=== PATIENT | male | born 1955 | race African-American/Black ===

== ENCOUNTER 2024-02-05 10:45 | Inpatient (IN) | payer MEDICARE, MEDICAID ==
[~2024-02-05] VITALS: Ht 172.7 cm; Wt 55.8 kg
[~2024-02-05 10:45] MED LIST: DEXTROSE 50% WATER 50ML SYRINGE IV ONE
[2024-02-05] MEDS: DEXTROSE 50% WATER 50ML SYRINGE IV ONE (11:21)
[2024-02-05] MEDS: SODIUM CHLORIDE 0.9% 1000ML BAG (SEPSIS BOLUS) IV ONE (11:30)
[2024-02-05] MEDS: PIPERACILLIN/TAZO 3.375G/50ML 50 ML IV ONE (11:51)
[2024-02-05 11:58] LABS: BASOPHILS % 0.7 % (0.0-2.0); EOSINOPHILS % 1.7 % (0.0-5.0); HEMOGLOBIN. 11.2 g/dL (14.0-18.0); LYMPHOCYTES % 7.4 % (20.0-50.0); MEAN CORPUSCULAR HEMOGLOBIN 20.3 pg (28.0-32.0); MEAN CORPUSCULAR HGB CONC 30.2 g/dL (31.0-37.0); MEAN CORPUSCULAR VOLUME 67.1 fL (80.0-94.0); MEAN PLATELET VOLUME 9.2 fl (7.4-10.4); NEUTROPHILS % 84.2 % (40.0-76.0); PLATELET 199 x1000/uL (130-400); RED BLOOD CELL COUNT 5.51 mill/uL (4.7-6.1); RED CELL DISTRIBUTION WIDTH 23.9 % (11.6-14.6); WHITE BLOOD COUNT 9.6 x1000/uL (4.5-11.0)
[2024-02-05 12:02] LABS: ADD RBC MORPHOLOGY YES; DIFFERENTIAL COMMENT 1
[2024-02-05 12:05] LABS: CHLORIDE 105 mEq/L (98-107); POTASSIUM 3.6 mEq/L (3.5-5.1); SODIUM 141 mEq/L (136-145)
[2024-02-05 12:06] LABS: CALCIUM 9.5 mg/dL (8.7-10.4); CARBON DIOXIDE 25 mEq/L (21-32); INR 1.4; PROTHROMBIN TIME 15.1 sec (9.6-11.0)
[2024-02-05] MEDS: VANCOMYCIN 1G PREMIX 200 ML IV ONE (12:10)
[2024-02-05 12:11] LABS: CREATININE 1.4 mg/dL (0.6-1.3); GLUCOSE 114 mg/dL (70-105); TROPONIN I HIGH SENSITIVITY 25 ng/L (3.0-53); UREA NITROGEN BLOOD 14 mg/dL (9-23)
[2024-02-05 12:13] LABS: ALANINE AMINOTRANSFERASE 13 IU/L (10-49); ALBUMIN 3.6 g/dL (3.2-4.8); ASPARTATE AMINOTRANSFERASE 41 IU/L (<34); BILIRUBIN DIRECT 1.3 mg/dL (<=3.0); BILIRUBIN TOTAL 2.3 mg/dL (0.1-1.0); PROTEIN TOTAL 6.8 g/dL (6.0-8.3)
[2024-02-05 12:48] LABS: MICROCYTOSIS 2+; PLATELET ESTIMATE NORMAL; TARGET CELLS 1+
[2024-02-05 12:52] LABS: LACTIC ACID 4.4 mmol/L (0.4-2.0)
[2024-02-05] MEDS: KETOROLAC 30MG/ML VIAL IV ONE (13:02)
[2024-02-05] MEDS ORDERED: CLONIDINE 0.1MG TABLET PO PRN (17:15)
[2024-02-05] MEDS ORDERED: IPRATROPIUM/ALBUTEROL 0.5-3(2.5)MG/3ML NEB HHN PRN (17:15)
[2024-02-05 18:20] LABS: BG BASE EXCESS -3.6 mmol/L (-2.0-2.0); BG DEOXYHEMOGLOBIN 4.3 % (0.0-5.0); BG FRACTION INSPIRED OXYGEN 21; BG HCO3 ACT 19.6 mmol/L (22.0-26.0); BG METHEMOGLOBIN 0.3 % (0.0-1.5); BG OXYGEN SATURATION 95.6 % (92.0-98.5); BG OXYHEMOGLOBIN 94.4 % (94.0-97.0); BG PCO2 30.1 mmHg (35.0-45.0); BG PH 7.432 (7.350-7.450); BG PO2 78.8 mmHg (75.0-100.0); BG SAMPLE SITE RIGHT BRACHIAL; BG TOTAL HEMOGLOBIN 12.4 g/dL (12.0-18.0); BG VENT MODE ROOM AIR
[2024-02-05] MEDS: VANCOMYCIN 750MG/250ML IV SCH (18:30)
[2024-02-05 20:22] LABS: IRON 27 ug/dL (65-175)
[2024-02-05 20:24] LABS: LACTATE DEHYDROGENASE 274 IU/L (120-246)
[2024-02-05 20:25] LABS: TOTAL IRON BINDING CAPACITY 231 ug/dl (250-425)
[2024-02-05] MEDS: BLOOD SUGAR DIAGNOSTIC STRIP TEST SCH (21:09)
[2024-02-05] MEDS: HYDROCODONE/ACETAMINOPHEN 5/325MG TABLET PO NR (21:33)
[2024-02-05] MEDS: FAMOTIDINE 20MG TABLET PO SCH (21:33)
[2024-02-05] MEDS: DEXT 5%/0.45% NACL KCL 10MEQ/L 1,000 ML IV ONE (22:58)
[2024-02-06] MEDS: PIPERACILLIN/TAZO 3.375G/50ML 50 ML IV SCH ×2 (03:13→08:00)
[2024-02-06 09:30] VITALS: BP 124/88; PULSE 88; RESP 18; TEMP 98.2
[2024-02-06 09:39] VITALS: BP 110/83; PULSE 74; RESP 18; TEMP 97.9
[2024-02-06 11:12] LABS: EOSINOPHILS % 4.5 % (0.0-5.0); HEMOGLOBIN. 11.4 g/dL (14.0-18.0); LYMPHOCYTES % 15.2 % (20.0-50.0); MEAN CORPUSCULAR HEMOGLOBIN 20.2 pg (28.0-32.0); MEAN CORPUSCULAR HGB CONC 30.1 g/dL (31.0-37.0); MEAN CORPUSCULAR VOLUME 67.1 fL (80.0-94.0); MEAN PLATELET VOLUME 8.6 fl (7.4-10.4); MONOCYTES % 11.5 % (2.0-8.0); NEUTROPHILS % 67.8 % (40.0-76.0); PLATELET 196 x1000/uL (130-400); RED BLOOD CELL COUNT 5.67 mill/uL (4.7-6.1); RED CELL DISTRIBUTION WIDTH 24.5 % (11.6-14.6); WHITE BLOOD COUNT 7.5 x1000/uL (4.5-11.0)
[2024-02-06] MEDS: KETOROLAC 15MG/ML VIAL IV PRN (11:14)
[2024-02-06 11:20] LABS: ADD RBC MORPHOLOGY NO; DIFFERENTIAL COMMENT 1
[2024-02-06 11:36] LABS: CHLORIDE 108 mEq/L (98-107); POTASSIUM 3.5 mEq/L (3.5-5.1); SODIUM 138 mEq/L (136-145)
[2024-02-06 11:37] LABS: CALCIUM 9.1 mg/dL (8.7-10.4); CARBON DIOXIDE 22 mEq/L (21-32)
[2024-02-06 11:42] LABS: CREATININE 1.2 mg/dL (0.6-1.3); GLUCOSE 69 mg/dL (70-105); TRIGLYCERIDE 77 mg/dL (0-150); UREA NITROGEN BLOOD 10 mg/dL (9-23)
[2024-02-06 11:43] LABS: LACTIC ACID 3.4 mmol/L (0.4-2.0); LDL CHOLESTEROL 59 mg/dL (5-100)
[2024-02-06 11:44] LABS: CHOLESTEROL 106 mg/dL (<200); HDL CHOLESTEROL 33 mg/dL (>55)
[2024-02-06 11:46] LABS: T4 FREE 1.18 ng/dL (0.89-1.76); THYROID STIMULATING HORMONE 3.48 uIU/mL (0.55-4.78)
[2024-02-06 12:00] VITALS: BP 118/66; PULSE 88; RESP 18; TEMP 98.2
[2024-02-06] MEDS: DEXTROSE 50% WATER 50ML SYRINGE IV PRN (13:28)
[2024-02-06] MEDS: FUROSEMIDE 40MG/4ML VIAL IVP SCH (15:01)
[2024-02-06] MEDS: AZATHIOPRINE 50MG TABLET PO SCH (15:06)
[2024-02-06 16:00] VITALS: BP 116/68; PULSE 88; RESP 18; TEMP 98.2
[2024-02-06] MEDS: ASPIRIN 81MG TABLET PO SCH (16:29)
[2024-02-06] MEDS: PREDNISONE 5MG TABLET PO SCH (16:29)
[2024-02-06 18:16] LABS: CLARITY URINE TURBID (CLEAR); COLOR URINE DARK YELLOW (YELLOW); GLUCOSE URINE NEGATIVE (NEGATIVE); KETONES URINE TRACE (NEGATIVE); LEUKOCYTE ESTERASE URINE 3+ (NEGATIVE); NITRITE URINE NEGATIVE (NEGATIVE); OCCULT BLOOD URINE 3+ (NEGATIVE); PH URINE 5.5 (4.5-8.0); PROTEIN URINE 2+ (NEGATIVE); SPECIFIC GRAVITY URINE 1.018 (1.005-1.030)
[2024-02-06] MEDS: VANCOMYCIN 1.25GM PMX (XELLIA) 250 ML IV SCH (18:23)
[2024-02-06 18:39] LABS: CREATININE URINE RANDOM 127.2 mg/dL
[2024-02-06 19:14] LABS: BACTERIA URINE 4+; RBC URINE TNTC /hpf (0-2); SQUAMOUS EPITHELIAL CELL URINE NONE SEEN /lpf (RARE/1+); WBC URINE TNTC /hpf (0-2); YEAST URINE 4+
[2024-02-06 20:00] VITALS: BP 125/94; PULSE 93; RESP 16; TEMP 97.3
[2024-02-06] MEDS ORDERED: INFLUENZA VACCINE 05/PF 0.5 ML SYRINGE IM ONE (21:30)
[2024-02-06] MEDS ORDERED: PNEUMOCOCCAL 23-VAL P-SAC VAC 0.5 ML IM ONE (21:30)
[2024-02-07] VITALS: BP 120/91; PULSE 94; RESP 19; TEMP 97.1
[2024-02-07 04:53] VITALS: BP 127/86; PULSE 94; RESP 19; TEMP 97.3
[2024-02-07 08:04] LABS: CALCIUM 9.2 mg/dL (8.7-10.4); CHLORIDE 106 mEq/L (98-107); POTASSIUM 3.7 mEq/L (3.5-5.1); SODIUM 140 mEq/L (136-145)
[2024-02-07 08:06] LABS: CARBON DIOXIDE 23 mEq/L (21-32)
[2024-02-07 08:11] LABS: CREATININE 1.3 mg/dL (0.6-1.3); GLUCOSE 98 mg/dL (70-105); UREA NITROGEN BLOOD 14 mg/dL (9-23)
[2024-02-07] MEDS: LIDOCAINE HCL 1% 10 MG/ML 10ML VIAL ONE (08:30)
[2024-02-07] MEDS: DOCUSATE SODIUM 100MG CAPSULE PO PRN (10:12)
[2024-02-07] MEDS: CLOPIDOGREL 75MG TABLET PO SCH (10:12)
[2024-02-07] MEDS ORDERED: INSULIN LISPRO 100 UNITS/ML SUBCUT PRN (14:30)
[2024-02-07] MEDS ORDERED: DEXTROSE 50% WATER 50ML SYRINGE IV PRN (14:30)
[2024-02-07] MEDS: ENOXAPARIN 40MG/0.4ML SYR SUBCUT SCH (16:01)
[2024-02-07] MEDS: BLOOD SUGAR DIAGNOSTIC STRIP TEST SCH (18:22)
[2024-02-07] MEDS: FUROSEMIDE 40MG/4ML VIAL IVP SCH (18:41)
[2024-02-07 20:00] VITALS: BP 125/87; PULSE 96; RESP 16; TEMP 97.5
[2024-02-07] MEDS: INSULIN LISPRO 100 UNITS/ML SUBCUT PRN (20:55)
[2024-02-07] MEDS ORDERED: FUROSEMIDE 40MG/4ML VIAL IVP SCH (21:00)
[2024-02-08] VITALS: BP 121/96; PULSE 92; RESP 20; TEMP 97.3
[2024-02-08 04:00] VITALS: BP 122/96; PULSE 91; RESP 20; TEMP 97.1
[2024-02-08 07:45] LABS: HEMATOCRIT 39.2 % (42.0-52.0)
[2024-02-08 07:50] LABS: CALCIUM 9.3 mg/dL (8.7-10.4); CARBON DIOXIDE 24 mEq/L (21-32); CHLORIDE 105 mEq/L (98-107); POTASSIUM 3.4 mEq/L (3.5-5.1); SODIUM 138 mEq/L (136-145)
[2024-02-08 07:56] LABS: CREATINE KINASE 91 IU/L (46-171); CREATININE 1.3 mg/dL (0.6-1.3); GLUCOSE 83 mg/dL (70-105); LACTIC ACID 3.2 mmol/L (0.4-2.0); UREA NITROGEN BLOOD 12 mg/dL (9-23)
[2024-02-08 07:57] LABS: TROPONIN I HIGH SENSITIVITY 25 ng/L (3.0-53)
[2024-02-08 07:58] LABS: PHOSPHORUS 3.3 mg/dL (2.5-4.9)
[2024-02-08 08:00] VITALS: BP 123/85; PULSE 92; RESP 20; TEMP 97.8
[2024-02-08] MEDS: POTASSIUM CHLORIDE 20MEQ TABLET SR PO SCH (10:04)
[2024-02-08] MEDS: MAGNESIUM OXIDE 400MG TABLET PO SCH (10:05)
[2024-02-08] MEDS: FLUCONAZOLE 100MG TABLET PO SCH (14:56)
[2024-02-08 15:57] LABS: ALBUMIN 3.6 g/dL (3.2-4.8)
[2024-02-08 16:00] VITALS: BP 121/92; PULSE 92; RESP 18; TEMP 97.9
[2024-02-08 16:11] LABS: PREALBUMIN < 5.0 mg/dl (10.0-40.0)
[2024-02-08 20:00] VITALS: BP 124/61; PULSE 58; RESP 20; TEMP 97.3
[2024-02-08] MEDS ORDERED: AMIT50TA4 PO (21:40)
[2024-02-08] MEDS ORDERED: ISOS60TA76 PO (21:40)
[2024-02-08] MEDS ORDERED: POTA-204 PO (21:40)
[2024-02-08] MEDS ORDERED: CLOP75TA33 PO (21:40)
[2024-02-08] MEDS ORDERED: OXYB5TAB21 PO (21:40)
[2024-02-08] MEDS ORDERED: AZAT50TA24 PO (21:40)
[2024-02-08] MEDS ORDERED: FURO40TA5 PO (21:40)
[2024-02-08] MEDS ORDERED: FERR325T30 PO (21:40)
[2024-02-08] MEDS ORDERED: METO25TA6 PO (21:40)
[2024-02-08] MEDS ORDERED: SIMV-43 PO (21:40)
[2024-02-08] MEDS ORDERED: PRED5TAB PO (21:40)
[2024-02-08] MEDS ORDERED: METF-907 PO (21:40)
[2024-02-08] MEDS ORDERED: GABA-529 PO (21:40)
[2024-02-08] MEDS ORDERED: BISA-145 PO (21:40)
[2024-02-08] MEDS ORDERED: ASPI-1406 PO (21:40)
[2024-02-09] VITALS (7 sets, daily range): BP systolic 100–155; BP diastolic 72–96; PULSE 58–95; RESP 18–20; TEMP 97–98.9
[2024-02-09 07:16] LABS: CHLORIDE 104 mEq/L (98-107); POTASSIUM 3.7 mEq/L (3.5-5.1); SODIUM 139 mEq/L (136-145)
[2024-02-09 07:17] LABS: BASOPHILS % 0.8 % (0.0-2.0); CALCIUM 9.4 mg/dL (8.7-10.4); CARBON DIOXIDE 23 mEq/L (21-32); EOSINOPHILS % 2.3 % (0.0-5.0); HEMOGLOBIN. 12.7 g/dL (14.0-18.0); LYMPHOCYTES % 13.9 % (20.0-50.0); MEAN CORPUSCULAR HEMOGLOBIN 20.7 pg (28.0-32.0); MEAN CORPUSCULAR HGB CONC 30.2 g/dL (31.0-37.0); MEAN CORPUSCULAR VOLUME 68.5 fL (80.0-94.0); MONOCYTES % 8.4 % (2.0-8.0); NEUTROPHILS % 74.6 % (40.0-76.0); PLATELET 232 x1000/uL (130-400); RED BLOOD CELL COUNT 6.13 mill/uL (4.7-6.1); RED CELL DISTRIBUTION WIDTH 24.1 % (11.6-14.6); WHITE BLOOD COUNT 10.8 x1000/uL (4.5-11.0)
[2024-02-09 07:22] LABS: CREATININE 1.4 mg/dL (0.6-1.3); DIFFERENTIAL COMMENT 1; GLUCOSE 98 mg/dL (70-105); UREA NITROGEN BLOOD 13 mg/dL (9-23)
[2024-02-09 07:24] LABS: PHOSPHORUS 2.9 mg/dL (2.5-4.9)
[2024-02-09 07:57] LABS: LACTIC ACID 5.8 mmol/L (0.4-2.0)
[2024-02-09] MEDS ORDERED: IPRATROPIUM/ALBUTEROL 0.5-3(2.5)MG/3ML NEB HHN PRN (09:45)
[2024-02-09] MEDS: MAGNESIUM 1 G PREMIX 100 ML IV NR (10:07)
[2024-02-09] MEDS: SODIUM CHLORIDE 0.9% 500 ML IV ONE (10:12)
[2024-02-09] MEDS: MAGNESIUM 2 G PREMIX 50 ML IV NR (13:54)
[2024-02-09 19:08] LABS: BG BASE EXCESS -1.7 mmol/L (-2.0-2.0); BG CARBOXYHEMOGLOBIN 0.9 % (0.5-1.5); BG DEOXYHEMOGLOBIN 1.5 % (0.0-5.0); BG FRACTION INSPIRED OXYGEN 32; BG HCO3 ACT 22.3 mmol/L (22.0-26.0); BG METHEMOGLOBIN 0.3 % (0.0-1.5); BG OXYGEN SATURATION 98.5 % (92.0-98.5); BG OXYHEMOGLOBIN 97.3 % (94.0-97.0); BG PCO2 35.4 mmHg (35.0-45.0); BG PH 7.417 (7.350-7.450); BG PO2 109.4 mmHg (75.0-100.0); BG SAMPLE SITE RIGHT BRACHIAL; BG TOTAL HEMOGLOBIN 13.2 g/dL (12.0-18.0); BG VENT MODE NASAL CANNULA
[2024-02-09] MEDS: IPRATROPIUM/ALBUTEROL 0.5-3(2.5)MG/3ML NEB HHN SCH (20:25)
[2024-02-09 21:26] LABS: LACTIC ACID 6.2 mmol/L (0.4-2.0)
[2024-02-09] MEDS: IOHEXOL-300 100 ML BOTTLE ONE (23:54)
[2024-02-10] VITALS (9 sets, daily range): BP systolic 113–157; BP diastolic 71–100; PULSE 69–91; RESP 17–20; TEMP 96.9–97.9
[2024-02-10 16:32] LABS: CARBON DIOXIDE 15 mEq/L (21-32); CHLORIDE 101 mEq/L (98-107); POTASSIUM 4.4 mEq/L (3.5-5.1); SODIUM 137 mEq/L (136-145)
[2024-02-10 16:33] LABS: CALCIUM 9.9 mg/dL (8.7-10.4)
[2024-02-10 16:38] LABS: CREATININE 1.5 mg/dL (0.6-1.3); GLUCOSE 75 mg/dL (70-105); UREA NITROGEN BLOOD 14 mg/dL (9-23)
[2024-02-10 16:39] LABS: ALANINE AMINOTRANSFERASE 19 IU/L (10-49); ASPARTATE AMINOTRANSFERASE 44 IU/L (<34)
[2024-02-10 16:40] LABS: BILIRUBIN TOTAL 2.1 mg/dL (0.1-1.0); PROTEIN TOTAL 7.9 g/dL (6.0-8.3)
[2024-02-10 17:08] LABS: LACTIC ACID 12.7 mmol/L (0.4-2.0)
[2024-02-10] MEDS: DEXT 5%/0.9% NACL 500 ML IV ONE (20:30)
[2024-02-10 20:50] LABS: BASOPHILS % 0.4 % (0.0-2.0); EOSINOPHILS % 0.2 % (0.0-5.0); HEMATOCRIT. 42.9 % (42.0-52.0); HEMOGLOBIN. 12.3 g/dL (14.0-18.0); MEAN CORPUSCULAR HEMOGLOBIN 20.3 pg (28.0-32.0); MEAN CORPUSCULAR HGB CONC 28.6 g/dL (31.0-37.0); MEAN CORPUSCULAR VOLUME 70.9 fL (80.0-94.0); MEAN PLATELET VOLUME 9.5 fl (7.4-10.4); MONOCYTES % 4.5 % (2.0-8.0); NEUTROPHILS % 86.9 % (40.0-76.0); PLATELET 245 x1000/uL (130-400); RED BLOOD CELL COUNT 6.05 mill/uL (4.7-6.1); RED CELL DISTRIBUTION WIDTH 24.8 % (11.6-14.6); WHITE BLOOD COUNT 10.1 x1000/uL (4.5-11.0)
[2024-02-10 20:52] LABS: DIFFERENTIAL COMMENT 1
[2024-02-10 20:53] LABS: ADD RBC MORPHOLOGY YES
[2024-02-10] MEDS: SODIUM BICARBONATE 8.4% 50MEQ/50ML SYR IV NR (20:55)
[2024-02-10 23:42] LABS: MICROCYTOSIS 2+; PLATELET ESTIMATE NORMAL
[2024-02-10 23:43] LABS: ANISOCYTOSIS 2+; HYPOCHROMASIA 1+; OVALOCYTES 1+; TARGET CELLS 1+
[2024-02-11] VITALS (10 sets, daily range): BP systolic 119–144; BP diastolic 52–97; PULSE 72–93; RESP 16–20; TEMP 97.2–98.1
[2024-02-11 01:33] LABS: LACTIC ACID 12.7 mmol/L (0.4-2.0)
[2024-02-11] MEDS: DEXT 10% WATER 1,000 ML IV SCH (02:31)
[2024-02-11 08:02] LABS: CARBON DIOXIDE 23 mEq/L (21-32); CHLORIDE 100 mEq/L (98-107); POTASSIUM 3.9 mEq/L (3.5-5.1); SODIUM 136 mEq/L (136-145)
[2024-02-11 08:03] LABS: CALCIUM 10.1 mg/dL (8.7-10.4)
[2024-02-11 08:08] LABS: CREATININE 1.6 mg/dL (0.6-1.3); GLUCOSE 219 mg/dL (70-105); UREA NITROGEN BLOOD 17 mg/dL (9-23)
[2024-02-11 08:10] LABS: PHOSPHORUS 3.9 mg/dL (2.5-4.9)
[2024-02-11 08:23] LABS: BASOPHILS % 0.6 % (0.0-2.0); EOSINOPHILS % 0.9 % (0.0-5.0); HEMOGLOBIN. 10.9 g/dL (14.0-18.0); LYMPHOCYTES % 9.7 % (20.0-50.0); MEAN CORPUSCULAR HEMOGLOBIN 20.5 pg (28.0-32.0); MEAN CORPUSCULAR HGB CONC 30.4 g/dL (31.0-37.0); MEAN CORPUSCULAR VOLUME 67.4 fL (80.0-94.0); MEAN PLATELET VOLUME 9.4 fl (7.4-10.4); MONOCYTES % 5.6 % (2.0-8.0); NEUTROPHILS % 83.2 % (40.0-76.0); PLATELET 213 x1000/uL (130-400); RED BLOOD CELL COUNT 5.34 mill/uL (4.7-6.1); RED CELL DISTRIBUTION WIDTH 23.8 % (11.6-14.6)
[2024-02-11 08:36] LABS: DIFFERENTIAL COMMENT 1
[2024-02-11] MEDS: GUAIFENESIN 200MG/10ML SUGAR FREE UDC PO PRN (08:54)
[2024-02-11] MEDS: BLOOD SUGAR DIAGNOSTIC STRIP TEST SCH (16:47)
[2024-02-12] VITALS (10 sets, daily range): BP systolic 118–150; BP diastolic 76–90; PULSE 68–93; RESP 18–20; TEMP 79.4–99; O2SAT 97–98
[2024-02-12 06:56] LABS: CALCIUM 9.9 mg/dL (8.7-10.4)
[2024-02-12 07:38] LABS: HEMATOCRIT 37.2 % (42.0-52.0); HEMOGLOBIN 11.2 g/dL (14.0-18.0); MEAN CORPUSCULAR HEMOGLOBIN 20.2 pg (28.0-32.0); MEAN CORPUSCULAR HGB CONC 30.1 g/dL (31.0-37.0); MEAN CORPUSCULAR VOLUME 67.2 fL (80.0-94.0); PLATELET 227 x1000/uL (130-400); RED BLOOD CELL COUNT 5.54 mill/uL (4.7-6.1); RED CELL DISTRIBUTION WIDTH 23.9 % (11.6-14.6); WHITE BLOOD COUNT 11.6 x1000/uL (4.5-11.0)
[2024-02-12] MEDS: ACETAMINOPHEN 325MG TABLET PO PRN (10:14)
[2024-02-12 10:33] LABS: LACTIC ACID 9.3 mmol/L (0.4-2.0)
[2024-02-12 17:54] LABS: LACTATE DEHYDROGENASE 939 IU/L (120-246)
[2024-02-12] MEDS: FUROSEMIDE 40MG/4ML VIAL IVP SCH (17:59)
[2024-02-13] VITALS (8 sets, daily range): BP systolic 124–136; BP diastolic 74–91; PULSE 75–87; RESP 16–22; TEMP 97–98.4; O2SAT 97
[2024-02-13 05:54] LABS: CHLORIDE 97 mEq/L (98-107); POTASSIUM 6.1 mEq/L (3.5-5.1); SODIUM 134 mEq/L (136-145)
[2024-02-13 05:55] LABS: CALCIUM 10.6 mg/dL (8.7-10.4); CARBON DIOXIDE 20 mEq/L (21-32)
[2024-02-13 06:00] LABS: CREATININE 2.5 mg/dL (0.6-1.3); GLUCOSE 57 mg/dL (70-105); GLUCOSE FASTING 57 mg/dL (70-105); UREA NITROGEN BLOOD 25 mg/dL (9-23)
[2024-02-13 06:02] LABS: ALANINE AMINOTRANSFERASE 208 IU/L (10-49); ALBUMIN 3.9 g/dL (3.2-4.8); ASPARTATE AMINOTRANSFERASE 921 IU/L (<34); BILIRUBIN TOTAL 2.6 mg/dL (0.1-1.0); PROTEIN TOTAL 7.4 g/dL (6.0-8.3)
[2024-02-13 06:31] LABS: HEMATOCRIT 39.6 % (42.0-52.0); HEMOGLOBIN 11.8 g/dL (14.0-18.0); MEAN CORPUSCULAR HEMOGLOBIN 20.5 pg (28.0-32.0); MEAN CORPUSCULAR HGB CONC 29.9 g/dL (31.0-37.0); MEAN CORPUSCULAR VOLUME 68.6 fL (80.0-94.0); PLATELET 221 x1000/uL (130-400); RED BLOOD CELL COUNT 5.77 mill/uL (4.7-6.1)
[2024-02-13] MEDS: SODIUM POLYSTYRENE SULFONATE 15 G/60 ML BOT PO ONE (09:30)
[2024-02-13] MEDS: SODIUM ZIRCONIUM CYCLOSILICATE 10GM/PACKET PO NR (09:50)
[2024-02-13] MEDS: FUROSEMIDE 40MG/4ML VIAL IVP SCH (09:51)
[2024-02-13] MEDS: ALBUTEROL (0.083%) 2.5MG/3ML NEB HHN NR (12:38)
[2024-02-13] MEDS ORDERED: MILRINONE 20MG-DEXT 5% PREMIX 100 ML IV SCH (13:15)
[2024-02-13] MEDS: ENOXAPARIN 30MG/0.3ML SYR SUBCUT SCH (15:59)
[2024-02-13 17:26] LABS: TROPONIN I HIGH SENSITIVITY 44 ng/L (3.0-53)
[2024-02-13 20:25] LABS: TROPONIN I HIGH SENSITIVITY 46 ng/L (3.0-53)
[2024-02-13 21:32] LABS: BG BASE EXCESS -7.1 mmol/L (-2.0-2.0); BG CARBOXYHEMOGLOBIN 0.8 % (0.5-1.5); BG DEOXYHEMOGLOBIN 0.5 % (0.0-5.0); BG FRACTION INSPIRED OXYGEN 36; BG OXYGEN SATURATION 99.5 % (92.0-98.5); BG OXYHEMOGLOBIN 98.7 % (94.0-97.0); BG PCO2 34.9 mmHg (35.0-45.0); BG PO2 181.5 mmHg (75.0-100.0); BG SAMPLE SITE RIGHT BRACHIAL; BG TOTAL HEMOGLOBIN 12.4 g/dL (12.0-18.0); BG VENT MODE NASAL CANNULA
[2024-02-14] VITALS (16 sets, daily range): BP systolic 99–137; BP diastolic 67–86; PULSE 63–88; RESP 16–22; TEMP 97.2–97.7
[2024-02-14 00:20] LABS: TROPONIN I HIGH SENSITIVITY 49 ng/L (3.0-53)
[2024-02-14 01:41] LABS: CLARITY URINE TURBID (CLEAR); COLOR URINE DARK YELLOW (YELLOW); GLUCOSE URINE NEGATIVE (NEGATIVE); KETONES URINE TRACE (NEGATIVE); LEUKOCYTE ESTERASE URINE 3+ (NEGATIVE); NITRITE URINE NEGATIVE (NEGATIVE); OCCULT BLOOD URINE 2+ (NEGATIVE); PROTEIN URINE 2+ (NEGATIVE); SPECIFIC GRAVITY URINE 1.034 (1.005-1.030)
[2024-02-14 01:48] LABS: POTASSIUM URINE RANDOM 68.5 mEq/L
[2024-02-14 02:22] LABS: BACTERIA URINE 1+; SQUAMOUS EPITHELIAL CELL URINE 1+ /lpf (RARE/1+); WBC URINE TNTC /hpf (0-2); YEAST URINE 2+
[2024-02-14 04:42] LABS: CALCIUM 10.4 mg/dL (8.7-10.4)
[2024-02-14 04:44] LABS: BASOPHILS % 0.5 % (0.0-2.0); EOSINOPHILS % 0.1 % (0.0-5.0); HEMATOCRIT. 38.9 % (42.0-52.0); LYMPHOCYTES % 7.3 % (20.0-50.0); MEAN CORPUSCULAR HEMOGLOBIN 20.6 pg (28.0-32.0); MEAN CORPUSCULAR HGB CONC 30.8 g/dL (31.0-37.0); MEAN PLATELET VOLUME 9.1 fl (7.4-10.4); MONOCYTES % 7.4 % (2.0-8.0); NEUTROPHILS % 84.7 % (40.0-76.0); PLATELET 215 x1000/uL (130-400); RED BLOOD CELL COUNT 5.81 mill/uL (4.7-6.1); RED CELL DISTRIBUTION WIDTH 23.8 % (11.6-14.6)
[2024-02-14 04:46] LABS: CREATININE 2.9 mg/dL (0.6-1.3)
[2024-02-14 05:11] LABS: POTASSIUM 6.2 mEq/L (3.5-5.1)
[2024-02-14] MEDS: SODIUM POLYSTYRENE SULFONATE 15 G/60 ML BOT PO NR (05:44)
[2024-02-14 06:30] LABS: DIFFERENTIAL COMMENT 1
[2024-02-14] MEDS: SODIUM BICARBONATE 8.4% 50MEQ/50ML SYR IV NR (06:37)
[2024-02-14] MEDS: CALCIUM CHLORIDE 1GM/10ML SYR IV NR (06:46)
[2024-02-14] MEDS: ALBUTEROL (0.083%) 2.5MG/3ML NEB HHN NR (09:29)
[2024-02-14] MEDS: ENOXAPARIN 80MG/0.8ML SYR SUBCUT SCH (12:39)
[2024-02-14 13:01] LABS: POTASSIUM 5.6 mEq/L (3.5-5.1)
[2024-02-14 13:04] LABS: POTASSIUM 5.6 mEq/L (3.5-5.1)
[2024-02-14 13:06] LABS: INR 2.6
[2024-02-14 13:07] LABS: C-PEPTIDE 3.2 ng/mL (1.1-4.4); INSULIN 0.9 uIU/mL (2.6-24.9)
[2024-02-14 13:12] LABS: AMMONIA < 17 uMol/L (<32)
[2024-02-14 13:40] LABS: HEPATITIS B SURFACE ANTIGEN NEGATIVE (Negative)
[2024-02-14 14:00] LABS: HEPATITIS A AB IGM NEGATIVE (Negative)
[2024-02-14 14:01] LABS: HEPATITIS B CORE AB IGM NEGATIVE (Negative)
[2024-02-14 14:02] LABS: HEPATITIS C AB REACTIVE (Pos) (Negative)
[2024-02-14] MEDS ORDERED: LIDOCAINE HCL 1% 10 MG/ML 10ML VIAL ONE (14:06)
[2024-02-14 15:54] LABS: ALANINE AMINOTRANSFERASE 280 IU/L (10-49); ALBUMIN 3.5 g/dL (3.2-4.8); ASPARTATE AMINOTRANSFERASE 978 IU/L (<34)
[2024-02-14 15:55] LABS: PROTEIN TOTAL 6.8 g/dL (6.0-8.3)
[2024-02-14] MEDS: MEROPENEM 1G/100ML 100 ML IV SCH (17:53)
[2024-02-14] MEDS: PHYTONADIONE 10MG/ML INJ SUBCUT SCH (18:02)
[2024-02-14] MEDS ORDERED: MELA10CA PO (20:37)
[2024-02-14] MEDS ORDERED: CHOL400D7 PO (20:37)
[2024-02-14] MEDS ORDERED: AZAT50TA24 PO (20:37)
[2024-02-14] MEDS ORDERED: MEROPENEM 500MG/50ML 50 ML IV SCH (22:00)
[2024-02-14] MEDS: IPRATROPIUM/ALBUTEROL 0.5-3(2.5)MG/3ML NEB HHN SCH (22:00)
[2024-02-14] MEDS: ACETYLCYSTEINE 200MG/ML 20% VIAL 4ML INH SCH (22:00)
[2024-02-15] VITALS (15 sets, daily range): BP systolic 116–138; BP diastolic 63–85; PULSE 82–89; RESP 16–22; TEMP 97.3–98.1; O2SAT 99
[2024-02-15 07:05] LABS: AMMONIA < 17 uMol/L (<32)
[2024-02-15 07:17] LABS: CHLORIDE 99 mEq/L (98-107); INR 2.6; POTASSIUM 4.4 mEq/L (3.5-5.1); PROTHROMBIN TIME 27.2 sec (9.6-11.0); SODIUM 134 mEq/L (136-145)
[2024-02-15 07:20] LABS: CALCIUM 9.7 mg/dL (8.7-10.4); CARBON DIOXIDE 21 mEq/L (21-32)
[2024-02-15 07:25] LABS: CREATININE 2.6 mg/dL (0.6-1.3); GLUCOSE 61 mg/dL (70-105)
[2024-02-15 07:26] LABS: ALBUMIN 3.2 g/dL (3.2-4.8)
[2024-02-15 07:27] LABS: ALANINE AMINOTRANSFERASE 241 IU/L (10-49); ASPARTATE AMINOTRANSFERASE 717 IU/L (<34); CREATINE KINASE 80 IU/L (46-171); UREA NITROGEN BLOOD 32 mg/dL (9-23)
[2024-02-15 07:29] LABS: BILIRUBIN TOTAL 3.1 mg/dL (0.1-1.0); PROTEIN TOTAL 6.4 g/dL (6.0-8.3)
[2024-02-15] MEDS: HYDROCODONE/ACETAMINOPHEN 5/325MG TABLET PO PRN (13:07)
[2024-02-15] MEDS ORDERED: FERR325T30 PO (17:48)
[2024-02-15 18:21] LABS: HEMOGLOBIN. 10.6 g/dL (14.0-18.0); MEAN CORPUSCULAR HEMOGLOBIN 20.5 pg (28.0-32.0); MEAN CORPUSCULAR HGB CONC 31.1 g/dL (31.0-37.0); MEAN PLATELET VOLUME 8.9 fl (7.4-10.4); PLATELET 165 x1000/uL (130-400); RED BLOOD CELL COUNT 5.15 mill/uL (4.7-6.1); RED CELL DISTRIBUTION WIDTH 23.5 % (11.6-14.6)
[2024-02-15 18:25] LABS: DIFFERENTIAL COMMENT 1
[2024-02-15 18:47] LABS: HYPOCHROMASIA 2+; MICROCYTOSIS 3+; NUCLEATED RED BLOOD CELLS 2 /100 WBC; PLATELET ESTIMATE NORMAL
[2024-02-15 18:48] LABS: ANISOCYTOSIS 2+
[2024-02-15] MEDS ORDERED: NALOXONE HCL 0.4MG/ML VIAL IV PRN (19:45)
[2024-02-15] MEDS: FAMOTIDINE 20MG TABLET PO SCH (20:43)
[2024-02-16] VITALS (8 sets, daily range): BP systolic 123–129; BP diastolic 85–92; PULSE 60–87; RESP 18–20; TEMP 97.3–97.6
[2024-02-16] MEDS: MEROPENEM 1G/100ML IV SCH (05:03)
[2024-02-16 08:07] LABS: CHLORIDE 100 mEq/L (98-107); POTASSIUM 4.3 mEq/L (3.5-5.1); SODIUM 135 mEq/L (136-145)
[2024-02-16 08:09] LABS: INR 1.9; PROTHROMBIN TIME 19.9 sec (9.6-11.0)
[2024-02-16 08:10] LABS: CALCIUM 9.7 mg/dL (8.7-10.4); CARBON DIOXIDE 23 mEq/L (21-32)
[2024-02-16 08:15] LABS: CREATININE 2.4 mg/dL (0.6-1.3); GLUCOSE 70 mg/dL (70-105); UREA NITROGEN BLOOD 29 mg/dL (9-23)
[2024-02-16 08:17] LABS: ALANINE AMINOTRANSFERASE 190 IU/L (10-49); ALBUMIN 3.3 g/dL (3.2-4.8); ASPARTATE AMINOTRANSFERASE 376 IU/L (<34); BILIRUBIN DIRECT 1.9 mg/dL (<=3.0); HEMATOCRIT. 34.7 % (42.0-52.0); HEMOGLOBIN. 10.6 g/dL (14.0-18.0); MEAN CORPUSCULAR HEMOGLOBIN 20.6 pg (28.0-32.0); MEAN CORPUSCULAR HGB CONC 30.6 g/dL (31.0-37.0); MEAN CORPUSCULAR VOLUME 67.4 fL (80.0-94.0); MEAN PLATELET VOLUME 8.8 fl (7.4-10.4); PHOSPHORUS 4.9 mg/dL (2.5-4.9); PLATELET 174 x1000/uL (130-400); RED BLOOD CELL COUNT 5.15 mill/uL (4.7-6.1); RED CELL DISTRIBUTION WIDTH 23.6 % (11.6-14.6)
[2024-02-16 08:18] LABS: BILIRUBIN TOTAL 2.8 mg/dL (0.1-1.0); PROTEIN TOTAL 6.6 g/dL (6.0-8.3)
[2024-02-16 08:45] LABS: DIFFERENTIAL COMMENT 1
[2024-02-16] MEDS: ENOXAPARIN 40MG/0.4ML SYR SUBCUT SCH (13:03)
[2024-02-16 13:07] LABS: PRO INSULIN 6.4 pmol/L (0.0-10.0)
[2024-02-16 14:01] LABS: NUCLEATED RED BLOOD CELLS 12 /100 WBC
[2024-02-16 14:02] LABS: ANISOCYTOSIS 3+; HYPOCHROMASIA 2+; PLATELET ESTIMATE NORMAL; TARGET CELLS 1+
[2024-02-16 14:03] LABS: MICROCYTOSIS 2+
[2024-02-17] VITALS (11 sets, daily range): BP systolic 91–155; BP diastolic 40–96; PULSE 64–89; RESP 18–20; TEMP 97.1–98.3; O2SAT 98
[2024-02-17 08:24] LABS: HEMATOCRIT 36.4 % (42.0-52.0); HEMATOCRIT. 36.4 % (42.0-52.0); HEMOGLOBIN 11.3 g/dL (14.0-18.0); HEMOGLOBIN. 11.3 g/dL (14.0-18.0); MEAN CORPUSCULAR HEMOGLOBIN 20.8 pg (28.0-32.0); MEAN CORPUSCULAR HGB CONC 30.9 g/dL (31.0-37.0); MEAN CORPUSCULAR VOLUME 67.1 fL (80.0-94.0); MEAN PLATELET VOLUME 9.2 fl (7.4-10.4); PLATELET 150 x1000/uL (130-400); RED BLOOD CELL COUNT 5.43 mill/uL (4.7-6.1); RED CELL DISTRIBUTION WIDTH 24.5 % (11.6-14.6); WHITE BLOOD COUNT 11.5 x1000/uL (4.5-11.0)
[2024-02-17 08:34] LABS: INR 1.6; PROTHROMBIN TIME 17.5 sec (9.6-11.0)
[2024-02-17 08:38] LABS: CHLORIDE 104 mEq/L (98-107); POTASSIUM 3.8 mEq/L (3.5-5.1); SODIUM 137 mEq/L (136-145)
[2024-02-17 08:40] LABS: CALCIUM 9.7 mg/dL (8.7-10.4); CARBON DIOXIDE 22 mEq/L (21-32)
[2024-02-17 08:45] LABS: CREATININE 1.9 mg/dL (0.6-1.3); GLUCOSE 101 mg/dL (70-105); UREA NITROGEN BLOOD 25 mg/dL (9-23)
[2024-02-17 08:46] LABS: ALANINE AMINOTRANSFERASE 144 IU/L (10-49)
[2024-02-17 08:47] LABS: ALBUMIN 3.4 g/dL (3.2-4.8); ASPARTATE AMINOTRANSFERASE 189 IU/L (<34); BILIRUBIN DIRECT 1.7 mg/dL (<=3.0); BILIRUBIN TOTAL 2.6 mg/dL (0.1-1.0); PROTEIN TOTAL 7.2 g/dL (6.0-8.3)
[2024-02-17 08:54] LABS: DIFFERENTIAL COMMENT 1
[2024-02-17 15:43] LABS: ANISOCYTOSIS 4+; MICROCYTOSIS 3+; NUCLEATED RED BLOOD CELLS 11 /100 WBC; PLATELET ESTIMATE NORMAL; TARGET CELLS 1+
[2024-02-17 15:44] LABS: HYPOCHROMASIA 1+
[2024-02-18] VITALS (8 sets, daily range): BP systolic 119–129; BP diastolic 83–95; PULSE 65–88; RESP 18–20; TEMP 96–98.8; O2SAT 98
[2024-02-18 17:26] LABS: POTASSIUM 4.5 mEq/L (3.5-5.1)
[2024-02-18 17:27] LABS: CALCIUM 9.8 mg/dL (8.7-10.4)
[2024-02-18 20:13] LABS: HEMATOCRIT 36.5 % (42.0-52.0); HEMOGLOBIN 11.1 g/dL (14.0-18.0); MEAN CORPUSCULAR HEMOGLOBIN 20.6 pg (28.0-32.0); MEAN CORPUSCULAR HGB CONC 30.5 g/dL (31.0-37.0); MEAN CORPUSCULAR VOLUME 67.4 fL (80.0-94.0); PLATELET 143 x1000/uL (130-400); RED BLOOD CELL COUNT 5.42 mill/uL (4.7-6.1); RED CELL DISTRIBUTION WIDTH 24.4 % (11.6-14.6); WHITE BLOOD COUNT 12.1 x1000/uL (4.5-11.0)
[2024-02-18 20:23] LABS: INR 1.4; PROTHROMBIN TIME 15.7 sec (9.6-11.0)
[2024-02-19] VITALS (11 sets, daily range): BP systolic 110–145; BP diastolic 55–87; PULSE 72–124; RESP 18–20; TEMP 97.4–99.1; O2SAT 96
[2024-02-19] MEDS: MAGNESIUM 2 G PREMIX 50 ML IV NR (04:00)
[2024-02-19 05:48] LABS: CALCIUM 9.8 mg/dL (8.7-10.4); POTASSIUM 3.5 mEq/L (3.5-5.1)
[2024-02-19 05:51] LABS: BASOPHILS % 0.3 % (0.0-2.0); EOSINOPHILS % 1.1 % (0.0-5.0); HEMATOCRIT. 36.7 % (42.0-52.0); HEMOGLOBIN. 11.5 g/dL (14.0-18.0); LYMPHOCYTES % 8.2 % (20.0-50.0); MEAN CORPUSCULAR HEMOGLOBIN 21.1 pg (28.0-32.0); MEAN CORPUSCULAR HGB CONC 31.4 g/dL (31.0-37.0); MEAN CORPUSCULAR VOLUME 67.2 fL (80.0-94.0); MEAN PLATELET VOLUME 8.8 fl (7.4-10.4); MONOCYTES % 9.2 % (2.0-8.0); NEUTROPHILS % 81.2 % (40.0-76.0); PLATELET 135 x1000/uL (130-400); RED BLOOD CELL COUNT 5.47 mill/uL (4.7-6.1)
[2024-02-19 05:54] LABS: CREATININE 2.1 mg/dL (0.6-1.3)
[2024-02-19 07:15] LABS: DIFFERENTIAL COMMENT 1
[2024-02-20] VITALS: BP 144/86; PULSE 80; RESP 20; TEMP 98.9
[2024-02-20 04:00] VITALS: BP 131/85; PULSE 83; RESP 18; TEMP 98.9
[2024-02-20 06:53] LABS: CHLORIDE 101 mEq/L (98-107); POTASSIUM 3.6 mEq/L (3.5-5.1); SODIUM 140 mEq/L (136-145)
[2024-02-20 06:56] LABS: CALCIUM 9.6 mg/dL (8.7-10.4); CARBON DIOXIDE 28 mEq/L (21-32)
[2024-02-20 07:01] LABS: CREATININE 1.6 mg/dL (0.6-1.3); GLUCOSE 97 mg/dL (70-105)
[2024-02-20 07:02] LABS: ALANINE AMINOTRANSFERASE 68 IU/L (10-49); ASPARTATE AMINOTRANSFERASE 65 IU/L (<34)
[2024-02-20 07:03] LABS: ALBUMIN 3.3 g/dL (3.2-4.8); BILIRUBIN DIRECT 1.6 mg/dL (<=3.0); BILIRUBIN TOTAL 2.7 mg/dL (0.1-1.0); PROTEIN TOTAL 6.9 g/dL (6.0-8.3)
[2024-02-20 07:12] LABS: HEMOGLOBIN. 11.7 g/dL (14.0-18.0); MEAN CORPUSCULAR HEMOGLOBIN 20.6 pg (28.0-32.0); MEAN CORPUSCULAR HGB CONC 30.1 g/dL (31.0-37.0); MEAN CORPUSCULAR VOLUME 68.3 fL (80.0-94.0); MEAN PLATELET VOLUME 8.7 fl (7.4-10.4); PLATELET 123 x1000/uL (130-400); RED BLOOD CELL COUNT 5.71 mill/uL (4.7-6.1); RED CELL DISTRIBUTION WIDTH 26.8 % (11.6-14.6)
[2024-02-20 07:15] LABS: UREA NITROGEN BLOOD 22 mg/dL (9-23)
[2024-02-20 07:56] LABS: DIFFERENTIAL COMMENT 1
[2024-02-20 08:00] VITALS: BP 121/88; PULSE 71; RESP 18; TEMP 97.2
[2024-02-20] MEDS ORDERED: MEROPENEM 1G/100ML IV SCH (10:00)
[2024-02-20 12:00] VITALS: BP 114/81; PULSE 78; RESP 19; TEMP 96.9
[2024-02-20 16:00] VITALS: BP 113/83; PULSE 78; RESP 18; TEMP 96.7
[2024-02-20 20:25] VITALS: BP 123/74; PULSE 89; RESP 20; TEMP 96.6
[2024-02-21] VITALS (11 sets, daily range): BP systolic 93–126; BP diastolic 45–83; PULSE 71–89; RESP 18–20; TEMP 97.5–99.1; O2SAT 97
[2024-02-21] MEDS: DEXT 10% WATER 1,000 ML IV SCH (00:15)
[2024-02-21 01:13] LABS: NUCLEATED RED BLOOD CELLS 3 /100 WBC; PLATELET ESTIMATE DECREASED
[2024-02-21 01:14] LABS: ANISOCYTOSIS 3+; HYPOCHROMASIA 2+; MICROCYTOSIS 3+
[2024-02-21] MEDS: FERROUS SULFATE 325MG TABLET PO SCH (13:22)
[2024-02-21] MEDS: ENOXAPARIN 60MG/0.6ML SYR SUBCUT SCH (13:23)
[2024-02-21 13:39] LABS: CHLORIDE 98 mEq/L (98-107); POTASSIUM 3.6 mEq/L (3.5-5.1); SODIUM 139 mEq/L (136-145)
[2024-02-21 13:40] LABS: CALCIUM 9.3 mg/dL (8.7-10.4); CARBON DIOXIDE 34 mEq/L (21-32)
[2024-02-21 13:45] LABS: CREATININE 1.1 mg/dL (0.6-1.3); GLUCOSE 90 mg/dL (70-105); UREA NITROGEN BLOOD 14 mg/dL (9-23)
[2024-02-21 13:48] LABS: HEMATOCRIT. 37.9 % (42.0-52.0); HEMOGLOBIN. 11.6 g/dL (14.0-18.0); MEAN CORPUSCULAR HEMOGLOBIN 20.7 pg (28.0-32.0); MEAN CORPUSCULAR HGB CONC 30.5 g/dL (31.0-37.0); MEAN CORPUSCULAR VOLUME 67.8 fL (80.0-94.0); MEAN PLATELET VOLUME 8.8 fl (7.4-10.4); PLATELET 132 x1000/uL (130-400); RED BLOOD CELL COUNT 5.59 mill/uL (4.7-6.1)
[2024-02-21 13:49] LABS: DIFFERENTIAL COMMENT 1
[2024-02-21 15:31] LABS: HYPOCHROMASIA 1+; MICROCYTOSIS 2+; PLATELET ESTIMATE NORMAL
== END 2024-02-21 22:17 | DRG 720 ==
LOC: ER 10:45 → 5WST 13:11 → EDBEDREQ 13:15 → EDBEDREQTM 13:15 → 7WST 02-06 08:55
PROVIDERS: ADMIT Internal Medicine; ATTEND Internal Medicine
PROC: 02HV33Z Insertion of Infusion Device into Superior Vena Cava, Percutaneous Approach (ICD-10-PCS; 2024-02-07)
PROC: B548ZZA Ultrasonography of Superior Vena Cava, Guidance (ICD-10-PCS; 2024-02-07)
PROC: B5181ZA Fluoroscopy of Superior Vena Cava using Low Osmolar Contrast, Guidance (ICD-10-PCS; 2024-02-07)
PROC: 0JB70ZZ Excision of Back Subcutaneous Tissue and Fascia, Open Approach (ICD-10-PCS; principal; 2024-02-13)
PROC: 0JBL0ZZ Excision of Right Upper Leg Subcutaneous Tissue and Fascia, Open Approach (ICD-10-PCS; 2024-02-13)
PROC: 02HV33Z Insertion of Infusion Device into Superior Vena Cava, Percutaneous Approach (ICD-10-PCS; 2024-02-14)
PROC: B548ZZA Ultrasonography of Superior Vena Cava, Guidance (ICD-10-PCS; 2024-02-14)
PROC: 5A1D70Z Performance of Urinary Filtration, Intermittent, Less than 6 Hours Per Day (ICD-10-PCS; 2024-02-14)
PROC: 5A1D70Z Performance of Urinary Filtration, Intermittent, Less than 6 Hours Per Day (ICD-10-PCS; 2024-02-15)
PROC: 5A1D70Z Performance of Urinary Filtration, Intermittent, Less than 6 Hours Per Day (ICD-10-PCS; 2024-02-17)
PROC: 5A1D70Z Performance of Urinary Filtration, Intermittent, Less than 6 Hours Per Day (ICD-10-PCS; 2024-02-19)
PROC: 5A1D70Z Performance of Urinary Filtration, Intermittent, Less than 6 Hours Per Day (ICD-10-PCS; 2024-02-21)
DX: A41.9 Sepsis, unspecified organism (principal); J96.21 Acute and chronic respiratory failure with hypoxia; N17.0 Acute kidney failure with tubular necrosis; I50.23 Acute on chronic systolic (congestive) heart failure; E46 Unspecified protein-calorie malnutrition; D68.9 Coagulation defect, unspecified; E11.649 Type 2 diabetes mellitus with hypoglycemia without coma; L89.153 Pressure ulcer of sacral region, stage 3; E87.20 Acidosis, unspecified; L89.212 Pressure ulcer of right hip, stage 2; L89.222 Pressure ulcer of left hip, stage 2; I42.9 Cardiomyopathy, unspecified; N18.6 End stage renal disease; I13.2 Hypertensive heart and chronic kidney disease with heart failure and with stage 5 chronic kidney disease, or end stage renal disease; D50.9 Iron deficiency anemia, unspecified; I25.10 Atherosclerotic heart disease of native coronary artery without angina pectoris; N50.89 Other specified disorders of the male genital organs; E11.22 Type 2 diabetes mellitus with diabetic chronic kidney disease; L25.9 Unspecified contact dermatitis, unspecified cause; R36.9 Urethral discharge, unspecified; E11.51 Type 2 diabetes mellitus with diabetic peripheral angiopathy without gangrene; N20.0 Calculus of kidney; L97.519 Non-pressure chronic ulcer of other part of right foot with unspecified severity; B18.2 Chronic viral hepatitis C; N30.90 Cystitis, unspecified without hematuria; L97.529 Non-pressure chronic ulcer of other part of left foot with unspecified severity; E87.5 Hyperkalemia; E78.00 Pure hypercholesterolemia, unspecified; J18.9 Pneumonia, unspecified organism; K76.1 Chronic passive congestion of liver; E83.52 Hypercalcemia; N14.11 Contrast-induced nephropathy; T50.8X5A Adverse effect of diagnostic agents, initial encounter; L72.9 Follicular cyst of the skin and subcutaneous tissue, unspecified; K76.0 Fatty (change of) liver, not elsewhere classified; E11.621 Type 2 diabetes mellitus with foot ulcer; I82.623 Acute embolism and thrombosis of deep veins of upper extremity, bilateral; T50.995A Adverse effect of other drugs, medicaments and biological substances, initial encounter; Z79.60 Long term (current) use of unspecified immunomodulators and immunosuppressants; I25.2 Old myocardial infarction; Z68.1 Body mass index [BMI] 19.9 or less, adult; Z99.81 Dependence on supplemental oxygen; Z99.2 Dependence on renal dialysis; Z79.82 Long term (current) use of aspirin; Z90.49 Acquired absence of other specified parts of digestive tract; Z90.5 Acquired absence of kidney; Z79.84 Long term (current) use of oral hypoglycemic drugs; Z94.0 Kidney transplant status; Z95.1 Presence of aortocoronary bypass graft; Y92.89 Other specified places as the place of occurrence of the external cause
CPT/HCPCS: 36415; 36556; 36573; 36600; 71045; 74176; 75635; 76700; 76870; 76937; 80048; 80053; 80061; 80076; 81003; 82040; 82088; 82140; 82248; 82330; 82375; 82436; 82533; 82550; 82553; 82570; 82728; 82805; 82947; 82962; 83036; 83525; 83540; 83550; 83605; 83615; 83735; 83880; 83970; 84100; 84132; 84133; 84134; 84145; 84156; 84206; 84300; 84439; 84443; 84484; 84681; 85014; 85018; 85025; 85027; 85044; 86337; 86705; 86709; 87077; 87106; 87340; 90935; 93005; 93306; 93923; 93970; 93976; 94640; 97110; 97116; 97162; 97166; 97530; 97535; 99285; C1725; C1752; C1893; J1650; J1815; J1885; J1940; J2185; J2543; J3370; J3430; J3475; J3490; J7030; J7500; J7512; J7608; Q9967

== ENCOUNTER 2024-02-21 22:36 | Inpatient (IN) | payer MEDICAID ==
[~2024-02-21] VITALS: Ht 172.7 cm; Wt 55.8 kg
[2024-02-21 21:00] VITALS: BP 107/69; PULSE 93; RESP 18; TEMP 36.8072
[2024-02-21 22:15] VITALS: BP 107/69; PULSE 93; RESP 19; TEMP 36.9474; O2SAT 100
[~2024-02-21 22:36] MED LIST changes: +AMIT50TA4 PO; +ASPI-1406 PO; +AZAT50TA24 PO; +BISA-145 PO; +CLOP75TA33 PO; -DEXTROSE 50% WATER 50ML SYRINGE IV ONE; +FERR325T30 PO; +FURO40TA5 PO; +GABA-529 PO; +ISOS60TA76 PO; +METF-907 PO; +METO25TA6 PO; +OXYB5TAB21 PO; +POTA-204 PO; +PRED5TAB PO; +SIMV-43 PO
[2024-02-21] MEDS ORDERED: GUAIFENESIN 200MG/10ML SUGAR FREE UDC PO PRN (23:00)
[2024-02-21] MEDS: ENOXAPARIN 60MG/0.6ML SYR SUBCUT SCH (23:00)
[2024-02-21] MEDS ORDERED: DOCUSATE SODIUM 100MG CAPSULE PO PRN (23:00)
[2024-02-21] MEDS ORDERED: CLONIDINE 0.1MG TABLET PO PRN (23:00)
[2024-02-21] MEDS: DEXTROSE 10% WATER 500 ML IV ONE (23:55)
[2024-02-22] MEDS: ACETAMINOPHEN 325MG TABLET PO PRN (00:49)
[2024-02-22] MEDS: BLOOD SUGAR DIAGNOSTIC STRIP TEST SCH (00:50)
[2024-02-22 06:53] LABS: CHLORIDE 99 mEq/L (98-107); POTASSIUM 3.1 mEq/L (3.5-5.1); SODIUM 138 mEq/L (136-145)
[2024-02-22 06:54] LABS: CALCIUM 9.6 mg/dL (8.7-10.4); CARBON DIOXIDE 33 mEq/L (21-32)
[2024-02-22 06:57] LABS: BASOPHILS % 0.2 % (0.0-2.0); EOSINOPHILS % 2.4 % (0.0-5.0); HEMATOCRIT. 36.3 % (42.0-52.0); HEMOGLOBIN. 11.2 g/dL (14.0-18.0); LYMPHOCYTES % 7.3 % (20.0-50.0); MEAN CORPUSCULAR HEMOGLOBIN 20.8 pg (28.0-32.0); MEAN CORPUSCULAR HGB CONC 30.9 g/dL (31.0-37.0); MEAN CORPUSCULAR VOLUME 67.2 fL (80.0-94.0); MONOCYTES % 7.3 % (2.0-8.0); NEUTROPHILS % 82.8 % (40.0-76.0); PLATELET 150 x1000/uL (130-400); WHITE BLOOD COUNT 12.5 x1000/uL (4.5-11.0)
[2024-02-22 06:59] LABS: GLUCOSE 100 mg/dL (70-105); UREA NITROGEN BLOOD 16 mg/dL (9-23)
[2024-02-22 07:01] LABS: ALANINE AMINOTRANSFERASE 44 IU/L (10-49); ALBUMIN 3.4 g/dL (3.2-4.8); ASPARTATE AMINOTRANSFERASE 56 IU/L (<34); BILIRUBIN TOTAL 1.9 mg/dL (0.1-1.0)
[2024-02-22 07:18] LABS: DIFFERENTIAL COMMENT 1
[2024-02-22 07:19] LABS: ADD RBC MORPHOLOGY NO
[2024-02-22 08:00] VITALS: BP 104/66; PULSE 86; RESP 18; RESP 22; TEMP 36.3918; O2SAT 99
[2024-02-22] MEDS: AZATHIOPRINE 50MG TABLET PO SCH (08:56)
[2024-02-22] MEDS: ASPIRIN 81MG TABLET PO SCH (08:56)
[2024-02-22] MEDS: MAGNESIUM OXIDE 400MG TABLET PO SCH (08:57)
[2024-02-22] MEDS: FERROUS SULFATE 325MG TABLET PO SCH (08:57)
[2024-02-22] MEDS: PREDNISONE 5MG TABLET PO SCH (08:57)
[2024-02-22] MEDS: CLOPIDOGREL 75MG TABLET PO SCH (08:57)
[2024-02-22] MEDS: FLUCONAZOLE 100MG TABLET PO SCH (08:57)
[2024-02-22] MEDS: POTASSIUM CHLORIDE 20MEQ TABLET SR PO NR (08:58)
[2024-02-22] MEDS ORDERED: FAMOTIDINE 20MG TABLET PO SCH (09:00)
[2024-02-22] MEDS: TRAMADOL HCL/ACETAMINOPHEN 37.5/325MG TABLET PO PRN (09:00)
[2024-02-22] MEDS: FUROSEMIDE 40MG/4ML VIAL IVP SCH (10:16)
[2024-02-22] MEDS: POTASSIUM CHLORIDE 10MEQ TABLET SR PO SCH (10:20)
[2024-02-22] MEDS ORDERED: NALOXONE HCL 0.4MG/ML VIAL IV PRN (15:00)
[2024-02-22 20:00] VITALS: BP 106/66; PULSE 61; RESP 18; TEMP 36.3918; O2SAT 97
[2024-02-23] MEDS: DEXTROSE 50% WATER 50ML SYRINGE IV PRN (01:33)
[2024-02-23 06:51] LABS: ALBUMIN 3.1 g/dL (3.2-4.8)
[2024-02-23 06:52] LABS: PREALBUMIN 5.2 mg/dl (10.0-40.0)
[2024-02-23 08:00] VITALS: BP 101/62; PULSE 70; RESP 19; TEMP 36.6696; O2SAT 98
[2024-02-23 09:37] LABS: BASOPHILS % 0.5 % (0.0-2.0); EOSINOPHILS % 2.2 % (0.0-5.0); HEMATOCRIT. 35.5 % (42.0-52.0); HEMOGLOBIN. 10.8 g/dL (14.0-18.0); LYMPHOCYTES % 8.4 % (20.0-50.0); MEAN CORPUSCULAR HEMOGLOBIN 20.7 pg (28.0-32.0); MEAN CORPUSCULAR HGB CONC 30.5 g/dL (31.0-37.0); MEAN CORPUSCULAR VOLUME 67.7 fL (80.0-94.0); MEAN PLATELET VOLUME 8.8 fl (7.4-10.4); MONOCYTES % 10.2 % (2.0-8.0); NEUTROPHILS % 78.7 % (40.0-76.0); PLATELET 159 x1000/uL (130-400); RED BLOOD CELL COUNT 5.24 mill/uL (4.7-6.1); RED CELL DISTRIBUTION WIDTH 26.2 % (11.6-14.6); WHITE BLOOD COUNT 10.4 x1000/uL (4.5-11.0)
[2024-02-23 09:38] LABS: CHLORIDE 98 mEq/L (98-107); DIFFERENTIAL COMMENT 1; POTASSIUM 3.9 mEq/L (3.5-5.1); SODIUM 139 mEq/L (136-145)
[2024-02-23 09:39] LABS: ADD RBC MORPHOLOGY YES; CALCIUM 9.4 mg/dL (8.7-10.4); CARBON DIOXIDE 33 mEq/L (21-32)
[2024-02-23 09:44] LABS: CREATININE 1.1 mg/dL (0.6-1.3); GLUCOSE 62 mg/dL (70-105)
[2024-02-23 09:45] LABS: UREA NITROGEN BLOOD 22 mg/dL (9-23)
[2024-02-23 17:21] LABS: ANISOCYTOSIS 4+; MICROCYTOSIS 3+; PLATELET ESTIMATE NORMAL
[2024-02-23 17:22] LABS: HYPOCHROMASIA 1+; TARGET CELLS 1+
[2024-02-23 20:00] VITALS: BP 96/59; PULSE 89; RESP 18; TEMP 36.72516; O2SAT 100
[2024-02-24 08:00] VITALS: BP 113/76; PULSE 90; RESP 18; TEMP 36.44736; O2SAT 100
[2024-02-24 14:45] VITALS: BP 101/67
[2024-02-24 17:21] VITALS: BP 92/51
[2024-02-24 20:00] VITALS: BP 97/64; PULSE 80; RESP 18; TEMP 36.89184; O2SAT 97
[2024-02-25 08:00] VITALS: BP 103/62; PULSE 72; RESP 20; O2SAT 97
[2024-02-25] MEDS: FUROSEMIDE 40MG TABLET PO SCH (09:00)
[2024-02-25 20:00] VITALS: BP 116/74; PULSE 90; RESP 18; TEMP 36.72516; O2SAT 100
[2024-02-26 07:54] LABS: CREATINE KINASE 37 IU/L (46-171)
[2024-02-26 08:00] VITALS: BP 108/70; PULSE 90; RESP 18; TEMP 36.50292; O2SAT 100
[2024-02-26 20:00] VITALS: BP 119/57; PULSE 68; RESP 18; TEMP 36.28068; O2SAT 93
[2024-02-27 08:00] VITALS: BP 100/60; PULSE 74; RESP 17; TEMP 36.3918; O2SAT 98
[2024-02-27] MEDS ORDERED: NALOXONE HCL 0.4MG/ML VIAL IV PRN (09:30)
[2024-02-27] MEDS: TRAMADOL HCL/ACETAMINOPHEN 37.5/325MG TABLET PO PRN (09:54)
[2024-02-27] MEDS ORDERED: BISACODYL 10MG SUPP PR PRN (10:30)
[2024-02-27] MEDS: LACTULOSE 20G/30ML UDC PO NR (11:35)
[2024-02-27] MEDS: PREDNISONE 20MG TABLET PO SCH (11:37)
[2024-02-27 15:02] LABS: POTASSIUM 3.9 mEq/L (3.5-5.1)
[2024-02-27 15:04] LABS: CALCIUM 9.8 mg/dL (8.7-10.4)
[2024-02-27 15:08] LABS: URIC ACID 5.4 mg/dL (3.7-9.2)
[2024-02-27 15:26] LABS: CREATININE 1.5 mg/dL (0.6-1.3)
[2024-02-27] MEDS ORDERED: SODIUM CHLORIDE 0.9% 1000ML BAG (SEPSIS BOLUS) IV ONE (19:00)
[2024-02-27] MEDS ORDERED: SODIUM CHLORIDE 0.9% 1,000 ML IV SCH (19:00)
[2024-02-27 20:00] VITALS: BP 129/77; PULSE 72; RESP 18; TEMP 36.55848; O2SAT 100
[2024-02-28 05:49] LABS: BASOPHILS % 0.3 % (0.0-2.0); EOSINOPHILS % 0.2 % (0.0-5.0); HEMATOCRIT. 31.2 % (42.0-52.0); HEMOGLOBIN. 9.9 g/dL (14.0-18.0); LYMPHOCYTES % 7.7 % (20.0-50.0); MEAN CORPUSCULAR HEMOGLOBIN 21.4 pg (28.0-32.0); MEAN CORPUSCULAR HGB CONC 31.8 g/dL (31.0-37.0); MEAN CORPUSCULAR VOLUME 67.3 fL (80.0-94.0); MEAN PLATELET VOLUME 9.2 fl (7.4-10.4); MONOCYTES % 7.3 % (2.0-8.0); NEUTROPHILS % 84.5 % (40.0-76.0); PLATELET 226 x1000/uL (130-400); RED BLOOD CELL COUNT 4.64 mill/uL (4.7-6.1); RED CELL DISTRIBUTION WIDTH 24.1 % (11.6-14.6); WHITE BLOOD COUNT 9.7 x1000/uL (4.5-11.0)
[2024-02-28 05:52] LABS: CHLORIDE 99 mEq/L (98-107); POTASSIUM 4.1 mEq/L (3.5-5.1); SODIUM 138 mEq/L (136-145)
[2024-02-28 05:53] LABS: CARBON DIOXIDE 34 mEq/L (21-32)
[2024-02-28 05:58] LABS: CREATININE 1.2 mg/dL (0.6-1.3); GLUCOSE 99 mg/dL (70-105)
[2024-02-28 05:59] LABS: UREA NITROGEN BLOOD 40 mg/dL (9-23)
[2024-02-28 06:02] LABS: DIFFERENTIAL COMMENT 1
[2024-02-28 08:00] VITALS: BP 114/74; PULSE 86; RESP 18; TEMP 36.44736; O2SAT 99
[2024-02-28] MEDS ORDERED: PREDNISONE 5MG TABLET PO SCH (09:00)
[2024-02-28] MEDS: POTASSIUM-SODIUM PHOSPHATE POWDER PACKET PO NR (09:09)
== END 2024-02-28 10:40 | disposition left against medical advice (07) | DRG 133 ==
PROVIDERS: ADMIT Psychiatry & Neurology Neurology; ATTEND Internal Medicine
DX: J96.21 Acute and chronic respiratory failure with hypoxia (principal); A41.9 Sepsis, unspecified organism; L89.153 Pressure ulcer of sacral region, stage 3; E46 Unspecified protein-calorie malnutrition; I13.2 Hypertensive heart and chronic kidney disease with heart failure and with stage 5 chronic kidney disease, or end stage renal disease; I82.623 Acute embolism and thrombosis of deep veins of upper extremity, bilateral; N17.9 Acute kidney failure, unspecified; E11.649 Type 2 diabetes mellitus with hypoglycemia without coma; E87.20 Acidosis, unspecified; N18.6 End stage renal disease; I50.22 Chronic systolic (congestive) heart failure; R53.1 Weakness; E11.22 Type 2 diabetes mellitus with diabetic chronic kidney disease; B18.2 Chronic viral hepatitis C; D50.9 Iron deficiency anemia, unspecified; E11.51 Type 2 diabetes mellitus with diabetic peripheral angiopathy without gangrene; E11.621 Type 2 diabetes mellitus with foot ulcer; E78.00 Pure hypercholesterolemia, unspecified; E87.5 Hyperkalemia; I25.10 Atherosclerotic heart disease of native coronary artery without angina pectoris; I42.9 Cardiomyopathy, unspecified; K76.0 Fatty (change of) liver, not elsewhere classified; L72.9 Follicular cyst of the skin and subcutaneous tissue, unspecified; L97.119 Non-pressure chronic ulcer of right thigh with unspecified severity; M13.0 Polyarthritis, unspecified; N20.0 Calculus of kidney; N39.0 Urinary tract infection, site not specified; N48.89 Other specified disorders of penis; N50.89 Other specified disorders of the male genital organs; R32 Unspecified urinary incontinence; Z99.81 Dependence on supplemental oxygen; Z95.1 Presence of aortocoronary bypass graft; Z94.0 Kidney transplant status; Z90.49 Acquired absence of other specified parts of digestive tract; Z79.84 Long term (current) use of oral hypoglycemic drugs; Z79.60 Long term (current) use of unspecified immunomodulators and immunosuppressants; Z79.02 Long term (current) use of antithrombotics/antiplatelets; Z79.82 Long term (current) use of aspirin; Z99.2 Dependence on renal dialysis; Z68.1 Body mass index [BMI] 19.9 or less, adult
CPT/HCPCS: 36415; 73120; 80048; 80053; 82040; 82550; 82962; 83735; 84100; 84134; 84550; 85025; 92523; 93923; 93970; 97110; 97112; 97116; 97163; 97166; 97530; 97535; J1650; J1940; J7500; J7512

== ENCOUNTER 2024-04-15 17:11 | Inpatient (IN) | payer MEDICARE, MEDICAID ==
[~2024-04-15] VITALS: Ht 160 cm; Wt 76.2 kg
[2024-04-15 17:30] VITALS: RESP 29
[2024-04-15] MEDS ORDERED: FUROSEMIDE 100MG/10ML VIAL IVP ONE (17:30)
[2024-04-15 17:34] LABS: BASOPHILS % 0.9 % (0.0-2.0); EOSINOPHILS % 4.5 % (0.0-5.0); HEMATOCRIT. 36.8 % (42.0-52.0); HEMOGLOBIN. 11.4 g/dL (14.0-18.0); LYMPHOCYTES % 11.4 % (20.0-50.0); MEAN CORPUSCULAR HEMOGLOBIN 21.7 pg (28.0-32.0); MEAN CORPUSCULAR HGB CONC 30.9 g/dL (31.0-37.0); MEAN CORPUSCULAR VOLUME 70.3 fL (80.0-94.0); MONOCYTES % 6.7 % (2.0-8.0); NEUTROPHILS % 76.5 % (40.0-76.0); RED BLOOD CELL COUNT 5.23 mill/uL (4.7-6.1); RED CELL DISTRIBUTION WIDTH 21.4 % (11.6-14.6); WHITE BLOOD COUNT 8.9 x1000/uL (4.5-11.0)
[2024-04-15 17:37] LABS: DIFFERENTIAL COMMENT 1
[2024-04-15] MEDS: FUROSEMIDE 40MG/4ML VIAL IVP NR (17:44)
[2024-04-15 17:50] LABS: TROPONIN I HIGH SENSITIVITY 17 ng/L (3.0-53)
[2024-04-15 17:56] LABS: MEAN PLATELET VOLUME 9.1 fl (7.4-10.4); PLATELET 163 x1000/uL (130-400)
[2024-04-15 17:58] LABS: ADD RBC MORPHOLOGY YES; MICROCYTOSIS 2+; PLATELET ESTIMATE NORMAL
[2024-04-15 17:59] LABS: ANISOCYTOSIS 2+; HYPOCHROMASIA 1+; TARGET CELLS 1+
[2024-04-15 19:34] VITALS: RESP 34
[2024-04-15 20:13] LABS: CLARITY URINE CLEAR (CLEAR); COLOR URINE YELLOW (YELLOW); GLUCOSE URINE NEGATIVE (NEGATIVE); KETONES URINE NEGATIVE (NEGATIVE); LEUKOCYTE ESTERASE URINE 1+ (NEGATIVE); NITRITE URINE NEGATIVE (NEGATIVE); OCCULT BLOOD URINE NEGATIVE (NEGATIVE); PH URINE 5.5 (4.5-8.0); PROTEIN URINE 1+ (NEGATIVE); SPECIFIC GRAVITY URINE 1.009 (1.005-1.030)
[2024-04-15 20:14] LABS: CHLORIDE 107 mEq/L (98-107); POTASSIUM 3.4 mEq/L (3.5-5.1); SODIUM 141 mEq/L (136-145)
[2024-04-15 20:15] LABS: CALCIUM 8.8 mg/dL (8.7-10.4); CARBON DIOXIDE 26 mEq/L (21-32)
[2024-04-15 20:20] LABS: CREATININE 1.3 mg/dL (0.6-1.3); GLUCOSE 79 mg/dL (70-105); UREA NITROGEN BLOOD 18 mg/dL (9-23)
[2024-04-15 20:21] LABS: TROPONIN I HIGH SENSITIVITY 17 ng/L (3.0-53)
[2024-04-15 20:22] LABS: ALANINE AMINOTRANSFERASE < 7 IU/L (10-49); ALBUMIN 3.4 g/dL (3.2-4.8); ASPARTATE AMINOTRANSFERASE 19 IU/L (<34); BILIRUBIN TOTAL 1.3 mg/dL (0.1-1.0); PROTEIN TOTAL 7.3 g/dL (6.0-8.3)
[2024-04-15 20:43] LABS: BACTERIA URINE 1+; RBC URINE 0-2 /hpf (0-2); SQUAMOUS EPITHELIAL CELL URINE FEW /lpf (RARE/1+)
[2024-04-15 20:46] LABS: INR 1.4; PROTHROMBIN TIME 15.2 sec (9.6-11.0)
[2024-04-15 20:48] LABS: TROPONIN I HIGH SENSITIVITY 18 ng/L (3.0-53)
[2024-04-15] MEDS ORDERED: POTASSIUM CHLORIDE 40 MEQ in DEXT 5% WATER 230 ML IV ONE ×2 (21:00→21:30)
[2024-04-15] MEDS ORDERED: KCL 20MEQ/100ML X 2 FOR TOTAL KCL 40MEQ/200ML IV SCH (21:15)
[2024-04-15] MEDS: KCL 20MEQ/100ML X 2 FOR TOTAL KCL 40MEQ/200ML IV SCH (22:19)
[2024-04-15 22:56] VITALS: RESP 28
[2024-04-15] MEDS ORDERED: IPRATROPIUM/ALBUTEROL 0.5-3(2.5)MG/3ML NEB HHN PRN (23:30)
[2024-04-15] MEDS ORDERED: CLONIDINE 0.1MG TABLET PO PRN (23:30)
[2024-04-15] MEDS ORDERED: ACETAMINOPHEN 325MG TABLET PO PRN (23:30)
[2024-04-15] MEDS ORDERED: ONDANSETRON HCL 4MG/2ML INJ IV PRN (23:30)
[2024-04-16] VITALS (12 sets, daily range): BP systolic 109–131; BP diastolic 82–106; PULSE 83–99; RESP 16–28; TEMP 36.05844–37.0296; O2SAT 91–98
[2024-04-16] MEDS: ACETAMINOPHEN 325MG TABLET PO PRN (05:44)
[2024-04-16 05:55] LABS: CHLORIDE 107 mEq/L (98-107); POTASSIUM 3.4 mEq/L (3.5-5.1); SODIUM 142 mEq/L (136-145)
[2024-04-16 05:56] LABS: CALCIUM 9.2 mg/dL (8.7-10.4); CARBON DIOXIDE 28 mEq/L (21-32)
[2024-04-16 05:58] LABS: CREATINE KINASE MB FRACTION 1.9 ng/mL (0.5-3.6); TROPONIN I HIGH SENSITIVITY 16 ng/L (3.0-53)
[2024-04-16 06:01] LABS: CREATININE 1.4 mg/dL (0.6-1.3); GLUCOSE 93 mg/dL (70-105); UREA NITROGEN BLOOD 19 mg/dL (9-23)
[2024-04-16 06:03] LABS: CREATINE KINASE 35 IU/L (46-171)
[2024-04-16 06:18] LABS: BASOPHILS % 0.5 % (0.0-2.0); DIFFERENTIAL COMMENT 0; EOSINOPHILS % 4.4 % (0.0-5.0); HEMATOCRIT. 36.4 % (42.0-52.0); HEMOGLOBIN. 10.7 g/dL (14.0-18.0); LYMPHOCYTES % 12.1 % (20.0-50.0); MEAN CORPUSCULAR HEMOGLOBIN 20.9 pg (28.0-32.0); MEAN CORPUSCULAR HGB CONC 29.4 g/dL (31.0-37.0); MEAN CORPUSCULAR VOLUME 71.2 fL (80.0-94.0); MEAN PLATELET VOLUME 9.4 fl (7.4-10.4); MONOCYTES % 8.7 % (2.0-8.0); NEUTROPHILS % 74.3 % (40.0-76.0); PLATELET 170 x1000/uL (130-400); RED CELL DISTRIBUTION WIDTH 21.2 % (11.6-14.6)
[2024-04-16] MEDS: FUROSEMIDE 40MG/4ML VIAL IV SCH (06:38)
[2024-04-16] MEDS: ASPIRIN 81MG EC TABLET PO SCH (08:51)
[2024-04-16] MEDS: POTASSIUM CHLORIDE 20MEQ TABLET SR PO NR (08:51)
[2024-04-16] MEDS: ENOXAPARIN 40MG/0.4ML SYR SUBCUT SCH (08:51)
[2024-04-16] MEDS: PREDNISONE 5MG TABLET PO SCH (08:51)
[2024-04-16] MEDS: CLOPIDOGREL 75MG TABLET PO SCH (08:52)
[2024-04-16 10:00] LABS: *AMPHETAMINES SCREEN URINE NEGATIVE (NEGATIVE); *BARBITURATES SCREEN URINE NEGATIVE (NEGATIVE); *BENZODIAZEPINES SCREEN URINE NEGATIVE (NEGATIVE); *COCAINE SCREEN URINE NEGATIVE (NEGATIVE)
[2024-04-16 10:01] LABS: CANNABINOID URINE SCREEN NEGATIVE (NEGATIVE); ECSTASY MDMA SCREEN URINE NEGATIVE (NEGATIVE); METHADONE URINE SCREEN NEGATIVE (NEGATIVE); OPIATES URINE SCREEN NEGATIVE (NEGATIVE); PHENCYCLIDINE URINE SCREEN NEGATIVE (NEGATIVE)
[2024-04-16] MEDS: KETOROLAC 15MG/ML VIAL IV NR ×2 (12:57→23:34)
[2024-04-16] MEDS: POTASSIUM CHLORIDE 20MEQ/PACKET PO NR (14:56)
[2024-04-16] MEDS: AZATHIOPRINE 50MG TABLET PO SCH (14:56)
[2024-04-16 17:51] LABS: CREATINE KINASE MB FRACTION 2.6 ng/mL (0.5-3.6)
[2024-04-16] MEDS: ATORVASTATIN CALCIUM 20MG TABLET PO SCH (20:28)
[2024-04-17] VITALS (12 sets, daily range): BP systolic 104–128; BP diastolic 73–94; PULSE 81–98; RESP 12–29; TEMP 36.05844–36.50292; O2SAT 94–100
[2024-04-17 06:50] LABS: CHLORIDE 109 mEq/L (98-107); POTASSIUM 4.3 mEq/L (3.5-5.1); SODIUM 143 mEq/L (136-145)
[2024-04-17 06:51] LABS: CALCIUM 9.6 mg/dL (8.7-10.4); CARBON DIOXIDE 26 mEq/L (21-32)
[2024-04-17 06:55] LABS: IRON 26 ug/dL (65-175)
[2024-04-17 06:56] LABS: CREATININE 1.5 mg/dL (0.6-1.3); GLUCOSE 76 mg/dL (70-105); UREA NITROGEN BLOOD 19 mg/dL (9-23)
[2024-04-17 06:58] LABS: TOTAL IRON BINDING CAPACITY 91 ug/dl (250-425)
[2024-04-17 08:07] LABS: HEMATOCRIT 39.5 % (42.0-52.0); HEMOGLOBIN 11.3 g/dL (14.0-18.0); MEAN CORPUSCULAR HEMOGLOBIN 21.1 pg (28.0-32.0); MEAN CORPUSCULAR HGB CONC 28.5 g/dL (31.0-37.0); MEAN CORPUSCULAR VOLUME 74.1 fL (80.0-94.0); PLATELET 168 x1000/uL (130-400); RED BLOOD CELL COUNT 5.33 mill/uL (4.7-6.1); RED CELL DISTRIBUTION WIDTH 21.4 % (11.6-14.6); WHITE BLOOD COUNT 13.8 x1000/uL (4.5-11.0)
[2024-04-17] MEDS: METOPROLOL SUCCINATE 50MG ER TABLET PO SCH (14:22)
[2024-04-18] VITALS (12 sets, daily range): BP systolic 99–130; BP diastolic 74–95; PULSE 72–85; RESP 11–33; TEMP 36.44736–36.72516; O2SAT 63–96
[2024-04-18] MEDS: TRAMADOL 50MG TABLET PO NR (00:05)
[2024-04-18 07:24] LABS: HEMATOCRIT 35.5 % (42.0-52.0); HEMOGLOBIN 10.4 g/dL (14.0-18.0); MEAN CORPUSCULAR HEMOGLOBIN 20.9 pg (28.0-32.0); MEAN CORPUSCULAR HGB CONC 29.4 g/dL (31.0-37.0); PLATELET 181 x1000/uL (130-400); RED CELL DISTRIBUTION WIDTH 20.9 % (11.6-14.6)
[2024-04-18 07:30] LABS: CHLORIDE 107 mEq/L (98-107); POTASSIUM 4.3 mEq/L (3.5-5.1); SODIUM 142 mEq/L (136-145)
[2024-04-18 07:31] LABS: CALCIUM 9.6 mg/dL (8.7-10.4); CARBON DIOXIDE 28 mEq/L (21-32)
[2024-04-18 07:36] LABS: CREATININE 1.4 mg/dL (0.6-1.3); GLUCOSE 74 mg/dL (70-105); UREA NITROGEN BLOOD 24 mg/dL (9-23)
[2024-04-18] MEDS: FERROUS SULFATE 325MG TABLET PO SCH (09:08)
[2024-04-18] MEDS: METOPROLOL SUCCINATE 25MG ER TABLET PO SCH (09:08)
[2024-04-19] VITALS (13 sets, daily range): BP systolic 107–133; BP diastolic 59–97; PULSE 65–77; RESP 4–23; TEMP 36.16956–36.55848; O2SAT 85–95
[2024-04-19 06:06] LABS: POTASSIUM 4.7 mEq/L (3.5-5.1)
[2024-04-19 06:07] LABS: CALCIUM 9.6 mg/dL (8.7-10.4)
[2024-04-19 06:12] LABS: CREATININE 1.6 mg/dL (0.6-1.3)
[2024-04-19 06:31] LABS: HEMATOCRIT 35.3 % (42.0-52.0); HEMOGLOBIN 10.6 g/dL (14.0-18.0); MEAN CORPUSCULAR HEMOGLOBIN 21.4 pg (28.0-32.0); MEAN CORPUSCULAR VOLUME 71.3 fL (80.0-94.0); PLATELET 194 x1000/uL (130-400); RED BLOOD CELL COUNT 4.96 mill/uL (4.7-6.1); RED CELL DISTRIBUTION WIDTH 21.6 % (11.6-14.6); WHITE BLOOD COUNT 10.2 x1000/uL (4.5-11.0)
[2024-04-19] MEDS ORDERED: FURO40TA5 PO (13:45)
[2024-04-19] MEDS: DEXTROSE 50% WATER 50ML SYRINGE IV ONE (22:23)
[2024-04-19] MEDS: FUROSEMIDE 40MG TABLET PO SCH (22:47)
[2024-04-19] MEDS: DEXTROSE 50% WATER 50ML SYRINGE IV PRN (23:18)
[2024-04-20] VITALS (13 sets, daily range): BP systolic 108–134; BP diastolic 61–94; PULSE 60–77; RESP 11–31; TEMP 36.33624–36.6696; O2SAT 90–95
[2024-04-20] MEDS: BLOOD SUGAR DIAGNOSTIC STRIP TEST SCH (08:08)
[2024-04-20 11:22] LABS: POTASSIUM 4.8 mEq/L (3.5-5.1)
[2024-04-20 11:24] LABS: CALCIUM 9.8 mg/dL (8.7-10.4)
[2024-04-20 11:28] LABS: CREATININE 1.7 mg/dL (0.6-1.3)
[2024-04-21] VITALS (8 sets, daily range): BP systolic 101–126; BP diastolic 63–83; PULSE 62–70; RESP 11–30; TEMP 36.114–36.44736; O2SAT 34–95
[2024-04-21 06:49] LABS: HEMATOCRIT 39.3 % (42.0-52.0); HEMOGLOBIN 11.5 g/dL (14.0-18.0); MEAN CORPUSCULAR HEMOGLOBIN 20.6 pg (28.0-32.0); MEAN CORPUSCULAR HGB CONC 29.3 g/dL (31.0-37.0); MEAN CORPUSCULAR VOLUME 70.4 fL (80.0-94.0); PLATELET 265 x1000/uL (130-400); RED BLOOD CELL COUNT 5.59 mill/uL (4.7-6.1); RED CELL DISTRIBUTION WIDTH 20.9 % (11.6-14.6); WHITE BLOOD COUNT 13.4 x1000/uL (4.5-11.0)
[2024-04-21 06:52] LABS: CHLORIDE 102 mEq/L (98-107); POTASSIUM 4.8 mEq/L (3.5-5.1); SODIUM 136 mEq/L (136-145)
[2024-04-21 06:53] LABS: CARBON DIOXIDE 24 mEq/L (21-32)
[2024-04-21 06:54] LABS: CALCIUM 10.1 mg/dL (8.7-10.4)
[2024-04-21 06:58] LABS: CREATININE 1.8 mg/dL (0.6-1.3); GLUCOSE 74 mg/dL (70-105); UREA NITROGEN BLOOD 38 mg/dL (9-23)
[2024-04-21] MEDS: KETOROLAC 15MG/ML VIAL IV NR (12:24)
== END 2024-04-21 18:51 | disposition home health service (06) | DRG 194 ==
LOC: ER 17:11 → 5EST 21:53 → EDBEDREQ 21:54
PROVIDERS: ADMIT Preventive Medicine Clinical Informatics; ATTEND Preventive Medicine Clinical Informatics
PROC: 5A09357 Assistance with Respiratory Ventilation, Less than 24 Consecutive Hours, Continuous Positive Airway Pressure (ICD-10-PCS; principal; 2024-04-15)
DX: I13.0 Hypertensive heart and chronic kidney disease with heart failure and stage 1 through stage 4 chronic kidney disease, or unspecified chronic kidney disease (principal); J96.21 Acute and chronic respiratory failure with hypoxia; E11.649 Type 2 diabetes mellitus with hypoglycemia without coma; I42.0 Dilated cardiomyopathy; E11.22 Type 2 diabetes mellitus with diabetic chronic kidney disease; D50.9 Iron deficiency anemia, unspecified; I50.23 Acute on chronic systolic (congestive) heart failure; J98.6 Disorders of diaphragm; L97.519 Non-pressure chronic ulcer of other part of right foot with unspecified severity; L97.529 Non-pressure chronic ulcer of other part of left foot with unspecified severity; B18.2 Chronic viral hepatitis C; E11.621 Type 2 diabetes mellitus with foot ulcer; E78.5 Hyperlipidemia, unspecified; I25.10 Atherosclerotic heart disease of native coronary artery without angina pectoris; I87.2 Venous insufficiency (chronic) (peripheral); I49.3 Ventricular premature depolarization; J47.9 Bronchiectasis, uncomplicated; J84.9 Interstitial pulmonary disease, unspecified; N20.0 Calculus of kidney; N18.9 Chronic kidney disease, unspecified; Z20.822 Contact with and (suspected) exposure to COVID-19; E11.51 Type 2 diabetes mellitus with diabetic peripheral angiopathy without gangrene; I37.1 Nonrheumatic pulmonary valve insufficiency; R32 Unspecified urinary incontinence; E87.6 Hypokalemia; Z86.718 Personal history of other venous thrombosis and embolism; Z94.0 Kidney transplant status; Z95.1 Presence of aortocoronary bypass graft; Z99.81 Dependence on supplemental oxygen; Z79.60 Long term (current) use of unspecified immunomodulators and immunosuppressants; Z79.84 Long term (current) use of oral hypoglycemic drugs; Z79.82 Long term (current) use of aspirin; Z79.899 Other long term (current) drug therapy; Z79.02 Long term (current) use of antithrombotics/antiplatelets
CPT/HCPCS: 36415; 71045; 80048; 80053; 80305; 81003; 82550; 82553; 82728; 82962; 83036; 83540; 83550; 83735; 83880; 84484; 85025; 85027; 85379; 86850; 86900; 87426; 93005; 93970; 94660; 99285; A6261; J1650; J1885; J1940; J3480; J7500; J7512